=== PATIENT | female | born 1990 | race Caucasian/White ===

== ENCOUNTER 2020-11-29 09:43 | Outpatient (CLI) | payer OTHER ==
[2020-11-29 10:30] LABS: ABSOLUTE EOSINOPHILS # (AUTO) 0.2 10^3/uL (0.0-0.6); ABSOLUTE LYMPHOCYTES (AUTO) 2.1 10^3/uL (0.5-4.7); ABSOLUTE MONOCYTES (AUTO) 0.7 10^3/uL (0.1-1.4); ABSOLUTE NEUT (AUTO) 6.2 10^3/uL (1.7-8.2); BASOPHILS % (AUTO) 0.3 % (0-2); EOSINOPHILS % (AUTO) 1.8 % (0-6); HEMOGLOBIN 11.4 g/dL (12.0-15.5); LYMPHOCYTES % (AUTO) 22.7 % (13-45); MEAN CORPUSCULAR HEMOGLOBIN 30.1 pg (27.0-33.4); MEAN CORPUSCULAR HGB CONC 35.7 g/dL (32.0-36.0); MEAN CORPUSCULAR VOLUME 84 fl (80-97); MONOCYTES % (AUTO) 7.4 % (3-13); PLATELET COUNT 175 10^3/uL (150-450); RED CELL DISTRIBUTION WIDTH 12.6 % (11.5-14.0); SEGMENTED NEUTROPHILS % (AUTO) 67.8 % (42-78); TOTAL CELLS COUNTED % (AUTO) 100 %; WHITE BLOOD COUNT 9.1 10^3/uL (4.0-10.5)
--- NOTE | 2020-11-29 11:10 | L&D Progress Notes ---
PROGRESS NOTES Datetime Report Generated by CPN: 11/29/2020 11:10 PROGRESS NOTE Comment: She fell onto her bottom at home and presents for evaluation. She did not strike her abdomen. She feels well now and the baby is moving well. Plan discharge. Very low risk of injury to the . SIGNATURE SIGNATURE: [id number] Signature: with User ID: [email or web address]
--- NOTE | 2020-11-29 11:49 | Non Stress Test Report ---
Non Stress Test Datetime Report Generated by CPN: 11/29/2020 11:48 INDICATION Indication for Study (NST) Other: Status post fall-sent from office MONITORING Monitor Explained: Monitor Explained; Test Explained; Patient Verbalized Understanding Time on Monitor: 11/29/2020 09:57 Time off Monitor: 11/29/2020 11:34 NST Duration: 97 NST INTERVENTIONS NST Interventions: PO Hydration Physician Notified NST: D Geiger MD BABY A: [id number] BABY A Movement : Present Contraction Frequency : irregular FHR Baseline : 130 Accelerations : 15X15 Decelerations : None Variability : Moderate 6-25bpm NST Review: Meets Criteria for Reactive NST NST Review and Verified By : Abbey Mirza RN NST Results: Reactive NST REPORT Report Trigger: Send Report
== END 2020-11-29 11:40 | disposition home or self-care (01) ==
LOC: LC 09:43
PROVIDERS: ATTEND Obstetrics & Gynecology
DX: Z04.3 Encounter for examination and observation following other accident (principal); W19.XXXA Unspecified fall, initial encounter; Z3A.33 33 weeks gestation of pregnancy
CPT/HCPCS: 36415; 59025; 85025; 86850; 86900; 86901